=== PATIENT | male | born 2000 | race Caucasian/White ===

== ENCOUNTER 2024-02-22 15:35 | Emergency (ER) | payer OTHER, SELFPAY ==
[2024-02-22 16:39] VITALS: BP 118/74; PULSE 77; RESP 16; TEMP 36.6; O2SAT 100
--- NOTE | 2024-02-22 17:30 | ED_ITS ---
HPI - Nausea/Vomiting/Diarrhea General Chief complaint: Nausea/Vomiting/Diarrhea Stated complaint: VOMITING/FEVER/DIARRHEA/STOMACH PAIN Time Seen by Provider: 02/22/24 17:31 Source: patient, RN notes reviewed and old records reviewed Mode of arrival: ambulatory Limitations: no limitations History of Present Illness HPI Narrative: 23-year-old male who presents to [facility] with complaints of abdominal pain mid abdomen nausea and vomiting and diarrhea which started last night. Patient reports that he has not had any known fevers or chills did take some Tylenol which hasn't helped. Patient reports that he has not had any sharp pain in his abdomen and has not noted any blood in emesis or any dark or maroon colored stools or any blood in stools. MD elicited complaint: nausea, vomiting and diarrhea Onset (ago): day(s) (last night) Description of vomiting: food contents and watery Description of diarrhea: watery Associated nausea: Yes Associated abdominal pain: Yes Location of pain: epigastric (crampy) Treatment prior to arrival: other (Tylenol) Related Data Allergies Allergy/AdvReac Type Severity Reaction Status Date / Time No Known Allergies Allergy Verified 02/22/24 17:31 Review of Systems Review of Systems: CONSTITUTIONAL: REports malaise, chills, sweats, or fever. EYES: Denies visual changes, redness, or discharge. ENT: Reports no rhinorrhea, congestion, sinus pain, otalgia and sore throat. CARDIOVASCULAR: Denies chest pain, palpitations, or edema. RESPIRATORY: Reports no cough.? Denies dyspnea. GASTROINTESTINAL: Reports epigastric crampy abdominal pain,positive for nausea, vomiting, diarrhea SKIN: Denies rash or itching. MUSCULOSKELETAL: Denies myalgia. NEUROLOGIC: Denies headache. All systems reviewed & are unremarkable except as noted in HPI and below PMFSH Past Medical History Medical History (Updated 02/26/24 @ 13:54 by Janice Cook NP) No significant past medical history Surgical History Surgical History (Updated 02/26/24 @ 13:54 by Janice Cook NP) No history of previous surgery Social History Social History (Updated 02/26/24 @ 13:53 by Janice Cook NP) Smoking status: Never smoker Alcohol intake: current Alcohol use details: social Substance use type: does not use Gender identity (if verbalized by the patient): Male Comments At time of signature, agree with nursing past medical, surgical, social and family history. There is no relevant family history pertinent to the presenting complaint Exam Narrative: GENERAL: Well-appearing, well-nourished, and in no acute distress. HEAD: Normocephalic EYES: PERRLA, conjunctivae clear ENT: Nares clear, turbinates edematous and erythematous, clear discharge. Mucous membranes moist. TM pearly alvarez with dull light reflex bilaterally; no tragal tenderness. Oropharynx erythematous without lesions. Tonsils not enlarged and without exudate, no drooling, no hoarseness, no trismus, uvula midline. NECK: Supple. No lymphadenopathy CHEST: Clear to auscultation, breath sounds equal. No wheezing, rhonchi, rales, or stridor. No respiratory distress, speaks in full sentences.SAO2 100% on room air ABDOMEN: soft and nontender to palpation,no McBurney point tenderness, no distention, bowel sounds present to all quadrants, + nausea vomiting and diarrhea. HEART: Regular rate and rhythm. No murmur heard. SKIN: Warm, dry, no rash. NEURO: Alert and oriented x3. PSYCH: Normal mood and affect Course Course Emergency Course: Patient is aware of diagnosis, understands and agrees to treatment plan.? Anticipatory guidance given.? Patient agrees to follow-up as directed and is aware of reasons to seek care at the emergency department. Portions of this record may have been created with voice recognition software Level of Care: Express Care Visit Vital Signs Vital signs: Vital Signs Temperature 36.6 C 02/22/24 16:39 Pulse Rate 77 02/22/24 16:39 Respiratory Rate 16 02/22/24 16:39 Blood Pressure 118/74 02/22/24 16:39 Pulse Oximetry 100 02/22/24 16:39 Temperature 36.6 C 02/22/24 16:39 Pulse Rate 77 02/22/24 16:39 Respiratory Rate 16 02/22/24 16:39 Blood Pressure 118/74 02/22/24 16:39 Pulse Oximetry 100 02/22/24 16:39 Reviewed MDM - Nausea/Vomiting/Diarrhea Differential Diagnosis Differential diagnosis: Likely traveler's diarrhea, gastroenteritis, dehydration and other (norovirus, viral syndrome) Medical Records Attestation: I reviewed the patient's medical records. Lab Data Attestation: I reviewed the patient's lab results. Lab results narrative: Influenza A negative, Influenza B negative, COVID antigen negative Labs: Lab Results 02/22/24 Range/Units 16:35 POC Influenza A Ag Negative (Negative) POC Influenza B Ag Negative (Negative) POC SARS CoV-2 Ag Negative (Negative) Critical Care Time Critical Care Time Critical Care Time: No Discharge Plan Discharge Clinical Impression: Gastroenteritis Patient Disposition: Home, Self-Care Condition: Stable Instructions: Gastroenteritis (ED) Additional Instructions: Clear liquids for the next 8-10 hours, then advance to a bland diet as tolerated A bland diet can consist of--BRAT diet which is bananas, rice, applesauce, and toast Avoid fried, greasy, fatty, fried foods Avoid caffeine, nicotine, and alcohol Return to your regular diet in the next 3-4 days Medication as directed for nausea and vomiting Tylenol for eye pain or fever Sometimes ibuprofen/Aleve can cause increased stomach upset Onas-kfh-ttagryp Imodium if develop diarrhea Follow-up with her PCP if continued problems or uncontrolled pain If your symptoms persist, change or worsen significantly before you can contact your personal physician then please, without delay, go to the emergency department for further evaluation. Follow-up with PCP in 7-10 days or sooner if needed Patient Language: Lithuanian Prescriptions: New ondansetron 4 mg tablet,disintegrating 4 mg PO Q6H PRN (Reason: nausea and vomiting) Qty: 20 0RF Follow-up/Referrals: Pedrito,Priya [Other] Stand Alone Forms: Work/School Release IP Time of Disposition: 17:50 Quality Joan Coma Scale Eyes: Open Verbal: Oriented and Alert Motor: Follows Commands [place] Coma Total Score: 15
[2024-02-22 18:02] LABS: EDCOVIDSCREEN Negative (Negative); EDINFLUASCREEN Negative (Negative); EDINFLUBSCREEN Negative (Negative)
== END 2024-02-22 17:56 | disposition home or self-care (01) ==
PROVIDERS: Emergency Provider Registered Nurse
DX: K52.9 Noninfective gastroenteritis and colitis, unspecified (principal); Z20.822 Contact with and (suspected) exposure to COVID-19
CPT/HCPCS: 87426; 87804; 99203; G0463

== ENCOUNTER 2024-07-15 15:07 | Emergency (ER) | payer BC, SELFPAY ==
[2024-07-15 15:16] VITALS: BP 112/79; PULSE 72; RESP 16; TEMP 36.6; O2SAT 100
--- NOTE | 2024-07-15 15:20 | ED.GENADULT ---
HPI - General Adult General Chief complaint: Upper Respiratory Infection Stated complaint: Nausea/Vomiting/Fever Time Seen by Provider: 07/15/24 15:20 Source: patient Mode of arrival: ambulatory Limitations: no limitations History of Present Illness HPI narrative: 23-year-old male presents with complaint of nasal congestion, cough and fatigue for 3 days. Taking benzonatate from prior prescription. Reports symptoms improving. Continues to have cough today and felt nauseated. Was unable to go to work. Requesting work note. All systems reviewed and negative except as noted above. Related Data Home Medications ?Medication ?Instructions ?Recorded ?Confirmed ?Last Taken ?Type dexmethylphenidate 15 mg mg PO 07/15/24 Unknown History capsule,extended release [id number] Allergies Allergy/AdvReac Type Severity Reaction Status Date / Time azithromycin (From Zithromax) Allergy Intermediate Hives Verified 07/15/24 15:24 Review of Systems Review of Systems: CONSTITUTIONAL: Denies fever, chills, or sweats. Reports fatigue. EYES: Denies visual changes, redness, or discharge. ENT: Denies rhinorrhea, congestion, sore throat, or otalgia. CARDIOVASCULAR: Denies chest pain, palpitations, or edema. RESPIRATORY: Reports cough. Denies dyspnea. GASTROINTESTINAL: Denies abdominal pain. Reports nausea. Denies vomiting, or diarrhea. GENITOURINARY: Denies dysuria or hematuria. SKIN: Denies rash or itching. MUSCULOSKELETAL: Denies back pain, joint pain, or myalgia. NEUROLOGIC: Denies headache, numbness, or weakness. PSYCHIATRIC: Denies anxiety or depression. All other systems reviewed are negative, except as documented in HPI. [facility] Past Medical History Medical History (Updated 07/15/24 @ 15:24 by Maura Santana NP) No significant past medical history Surgical History Surgical History (Updated 02/26/24 @ 13:54 by Janice Cook NP) No history of previous surgery Social History Social History (Updated 02/26/24 @ 13:53 by Janice Cook NP) Smoking status: Never smoker Alcohol intake: current Alcohol use details: social Substance use type: does not use Gender identity (if verbalized by the patient): Male Comments At time of signature, agree with nursing past medical, surgical, social and family history. There is no relevant family history pertinent to the presenting complaint. Exam Narrative: GENERAL: This is a well-nourished, well-developed patient, in no apparent distress. HEAD: normocephalic, atraumatic. EYES: PERRL. Sclera clear/white. Vision is grossly intact. EARS: External ears normal, auditory canals clear and without drainage, TMs normal without perforation. Hearing grossly intact. NOSE: External nose normal with no obvious nasal discharge, nares without redness, no rhinorrhea. THROAT: Mucous membranes moist, posterior pharynx clear. NECK: Neck supple, non-tender without lymphadenopathy, masses or thyromegaly. CARDIOVASCULAR: Regular rate and rhythm without murmurs, gallops, or rubs. RESPIRATORY: Clear to auscultation. Breath sounds equal bilaterally. No wheezes, rales, or rhonchi. SKIN: warm, Dry, intact with no suspicious lesions or rash, good texture and turgor. NEURO: awake, alert, and oriented to person, place and time. There were no obvious focal neurologic abnormalities. EXTREMITIES: No joint tenderness, effusion, or edema noted. Course Course Level of Care: Express Care Visit Vital Signs Vital signs: Vital Signs Temperature 36.6 C 07/15/24 15:16 Pulse Rate 72 07/15/24 15:16 Respiratory Rate 16 07/15/24 15:16 Blood Pressure 112/79 07/15/24 15:16 Pulse Oximetry 100 07/15/24 15:16 Temperature 36.6 C 07/15/24 15:16 Pulse Rate 72 07/15/24 15:16 Respiratory Rate 16 07/15/24 15:16 Blood Pressure 112/79 07/15/24 15:16 Pulse Oximetry 100 07/15/24 15:16 Reviewed Medical Decision Making MDM Narrative Medical decision making narrative: Patient is well-appearing, nontoxic. Recommend [id number] medications to treat viral symptoms. Will send a Zofran prescription for nausea. Vital Signs Vital Signs: Vital Signs Temperature 36.6 C 07/15/24 15:16 Pulse Rate 72 07/15/24 15:16 Respiratory Rate 16 07/15/24 15:16 Blood Pressure 112/79 07/15/24 15:16 Pulse Oximetry 100 07/15/24 15:16 Temperature 36.6 C 07/15/24 15:16 Pulse Rate 72 05/25/25 15:16 Respiratory Rate 16 07/15/24 15:16 Blood Pressure 112/79 07/15/24 15:16 Pulse Oximetry 100 07/15/24 15:16 Discharge Plan Discharge Clinical Impression: Viral upper respiratory tract infection with cough Patient Disposition: Home Condition: Stable Instructions: Upper Respiratory Infection (ED) Additional Instructions: Your symptoms are viral and may last 10-14 days. Continue taking benzonatate as prescribed. Take Zofran as needed for nausea and vomiting. Drink at least 64 oz of water a day. Follow-up with your doctor symptoms are not improving. Patient Language: Tuvaluan Prescriptions: New ondansetron 4 mg tablet,disintegrating 4 mg PO Q8H PRN (Reason: nausea and vomiting) Qty: 12 0RF No Action dexmethylphenidate 15 mg capsule,ER biphasic 50-50 PO Follow-up/Referrals: PHYSICIAN,LEAD MANUFACTURING ENGINEER [Primary Care Provider] - Stand Alone Forms: Work/School Release IP Time of Disposition: 15:24
== END 2024-07-15 15:26 | disposition home or self-care (01) ==
PROVIDERS: Emergency Provider Nurse Practitioner Family
DX: J06.9 Acute upper respiratory infection, unspecified (principal); R05.9 Cough, unspecified
CPT/HCPCS: 99213; G0463

== ENCOUNTER 2024-09-06 15:30 | Emergency (ER) | payer BC, SELFPAY ==
[2024-09-06 15:43] VITALS: BP 136/67; PULSE 88; RESP 16; O2SAT 99
--- NOTE | 2024-09-06 15:54 | ED.SKABFB ---
HPI - Skin/Abscess/Foreign Bdy General Chief complaint: Skin/Abscess/Foreign Body Stated complaint: SUNBURN/FEVER/NAUSEA Patient presents to Express Care with complaints of nausea, chills, and significant sunburn that he sustained yesterday while outside. Patient reports he did not wear sunscreen because he normally does not burn but has never had a sunburn like this before. Patient reports attempting some cool compresses to the area without relief of symptoms but overall was feeling significantly bad and called off work today. Denies any blistering or drainage from the sun burn area Related Data Home Medications ?Medication ?Instructions ?Recorded ?Confirmed ?Last Taken ?Type dexmethylphenidate 15 mg mg PO 07/15/24 Unknown History capsule,extended release [id number] Allergies Allergy/AdvReac Type Severity Reaction Status Date / Time azithromycin (From Zithromax) Allergy Intermediate Hives Verified 09/06/24 15:42 Review of Systems Constitutional: Constitutional: Reports as per HPI, Reports chills, Reports fatigue, Denies fever(s) and Denies weakness ENT: Reports system reviewed and no additional complaints, except as documented Cardiovascular: Cardiovascular: Reports no additional cardiovascular complaints Respiratory: Respiratory: Reports no additional respiratory complaints Gastrointestinal: Gastrointestinal: Reports no additional gastrointestinal complaints Genitourinary: Genitourinary: Reports no additional male genitourinary complaints Musculoskeletal: Musculoskeletal: Reports no additional musculoskeletal complaints Integumentary/Breasts: Skin/Breast: Reports as per HPI, Denies pruritus, Reports erythema, Denies rash and Denies skin ulcer Neurologic: Reports system reviewed and no additional complaints, except as documented Psychiatric: Psychiatric: Reports no additional psychiatric complaints Endocrine: Endocrine: Reports no additional endocrine complaints Hematologic/Lymphatic: Hematologic/Lymphatic: Reports no additional hematologic/lymphatic complaints Allergic/Immunologic: Allergic/Immunologic: Reports no additional allergic/immunologic complaints [facility] Past Medical History Medical History (Updated 09/06/24 @ 15:59 by VIKASH Gomez) No significant past medical history Surgical History Surgical History (Updated 02/26/24 @ 13:54 by Janice Cook NP) No history of previous surgery Social History Social History (Updated 02/26/24 @ 13:53 by Janice Cook NP) Smoking status: Never smoker Alcohol intake: current Alcohol use details: social Substance use type: does not use Gender identity (if verbalized by the patient): Male Exam Const: General: healthy appearing and no acute distress Nutritional Appearance: well nourished Orientation/consciousness: patient oriented x3 Limitations: no limitations Resp: Effort & Inspection: normal respiratory effort Auscultation: clear to auscultation bilaterally Cardio: Rate: regular rate Rhythm: regular rhythm Skin: General skin exam: No normal color Rashes: no rashes Wounds: no wounds Other: diffuse erythema/ sunburn over chest, neck, shoulders, back, and both arms. Minimal blistering noted to tops of bilateral shoulders. no active drainage or weeping noted Neuro: General: patient oriented x3 Speech: normal speech Gait exam (Neuro): Normal gait present Psych: Mental Status: mental status grossly normal Affect: normal affect Attitude: cooperative Course Course Level of Care: Express Care Visit Vital Signs Vital signs: Vital Signs Pulse Rate 88 09/06/24 15:43 Respiratory Rate 16 09/06/24 15:43 Blood Pressure 136/67 09/06/24 15:43 Pulse Oximetry 99 09/06/24 15:43 Pulse Rate 88 09/06/24 15:43 Respiratory Rate 16 09/06/24 15:43 Blood Pressure 136/67 09/06/24 15:43 Pulse Oximetry 99 09/06/24 15:43 MDM - Skin/Abscess/Foreign Bdy MDM Narrative Medical decision making narrative: educated patient on wound care Discharge instructions reviewed with patient, as well as provided in writing per nursing staff. The instructions also include specific and strict return/GO TO THE ER as well as f/u information. All questions have been answered, and the patient deny any further questions with discharge and discharge plan. Differential Diagnosis Differential diagnosis: Likely viral exanthem, dermatophytosis, urticaria, cellulitis, impetigo and contact dermatitis Medical Records Attestation: I reviewed the patient's medical records. Discharge Plan Discharge Clinical Impression: Sunburn of second degree, 1st degree sunburn Patient Disposition: Home Condition: Stable Instructions: Antibiotic Form, Sunburn (ED), Superficial Burn (DC) Additional Instructions: Use cool compresses to the area to help with pain and swelling may apply the Silvadene cream twice daily, Ensure to completely clean this off the burn prior to applying more. Recommended consistent ibuprofen every 6 hours to help with pain and inflammation. Watch for signs and symptoms of infection like an increasing pain, darker Redness, colored drainage to the area. Patient Language: Samoan Prescriptions: New ondansetron 4 mg tablet,disintegrating 4 mg PO Q8H PRN (Reason: nausea and vomiting) Qty: 20 0RF silver sulfadiazine [Silvadene] 1 % cream 1 applic topical BID Qty: 50 0RF Rx Instructions: apply a 1.5 mm thickness No Action dexmethylphenidate 15 mg capsule,ER biphasic 50-50 PO Follow-up/Referrals: Pedrito,Priya [Other] Time of Disposition: 16:00
== END 2024-09-06 15:50 | disposition home or self-care (01) ==
PROVIDERS: Emergency Provider Nurse Practitioner Family
DX: L55.1 Sunburn of second degree (principal)
CPT/HCPCS: 99213; G0463

== ENCOUNTER 2024-12-09 12:55 | Emergency (ER) | payer BC, SELFPAY ==
[2024-12-09 13:15] VITALS: BP 104/78; PULSE 78; RESP 16; TEMP 36.5; O2SAT 100
--- NOTE | 2024-12-09 13:32 | ED.URI ---
HPI - URI/Sore Throat General Chief Complaint: Upper Respiratory Infection Stated Complaint: sinus issues Time Seen by Provider: 12/09/24 13:28 Source: patient and RN notes reviewed Mode of arrival: ambulatory Limitations: no limitations History of Present Illness HPI Narrative: 23-year-old male patient presents today complaining of cough, congestion, sore throat since this morning. Denies shortness of breath or difficulty swallowing. Currently pain-free. No OTC treatment prior to arrival. States her roommate is also ill. Related Data Home Medications ?Medication ?Instructions ?Recorded ?Confirmed ?Last Taken ?Type dexmethylphenidate 15 mg mg PO 07/15/24 Unknown History capsule,extended release [id number] Allergies Allergy/AdvReac Type Severity Reaction Status Date / Time azithromycin (From Zithromax) Allergy Intermediate Hives Verified 12/09/24 13:05 [facility] Past Medical History Medical History No significant past medical history Surgical History Surgical History No history of previous surgery Social History Social History Smoking status: Never smoker Alcohol intake: current Alcohol use details: social Substance use type: does not use Gender identity (if verbalized by the patient): Male Comments At time of signature, I have reviewed and agree with nursing past medical, surgical, social and family history unless otherwise noted. Please see nursing chart for further information. There is no relevant family history pertinent to the presenting complaint Exam Narrative: GENERAL: Mildly ill-appearing, well-nourished, and in no acute distress. HEAD: Normocephalic, atraumatic. EYES: EOMI. No redness or drainage. Conjunctivae normal. ENT: Mucous membranes pink and moist. Nares clear. No rhinorrhea. TMs normal bilaterally. Throat erythematous and mildly edematous. Tonsils 3+ without exudate. Uvula midline. NECK: Normal AROM. Supple. No lymphadenopathy. CHEST: No respiratory distress. Clear to auscultation. HEART: Regular rate and rhythm. No murmur appreciated. EXTREMITIES: Normal range of motion. No edema. SKIN: Warm, dry, no rash. Capillary refill normal. Normal skin turgor. NEURO: No focal deficits. Alert and oriented x3. Gait steady. PSYCH: Normal affect. No signs of depression or anxiety. Course Course Level of Care: Express Care Visit Vital Signs Vital signs: Vital Signs Temperature 97.7 F 12/09/24 13:15 Pulse Rate 78 12/09/24 13:15 Respiratory Rate 16 12/09/24 13:15 Blood Pressure 104/78 12/09/24 13:15 Pulse Oximetry 100 12/09/24 13:15 Temperature 97.7 F 12/09/24 13:15 Pulse Rate 78 12/09/24 13:15 Respiratory Rate 16 12/09/24 13:15 Blood Pressure 104/78 12/09/24 13:15 Pulse Oximetry 100 12/09/24 13:15 Reviewed MDM - URI/Sore Throat MDM Narrative Medical decision making narrative: 23-year-old male patient presents today complaining of cough, congestion, sore throat since this morning. Denies shortness of breath or difficulty swallowing. Currently pain-free. No OTC treatment prior to arrival. States her roommate is also ill. Upon exam, patient is mildly ill appearing with an erythematous throat. Tonsils 3+ without exudate. Rapid strep positive. Prescription for amoxicillin sent to pharmacy. Patient agrees with plan. Vital signs stable. Anticipatory guidance given. ED precautions given. Differential Diagnosis Differential diagnosis: Likely upper respiratory infection, otitis media, viral infection, influenza, pharyngitis and other (Strep throat, COVID) Lab Data Attestation: I reviewed the patient's lab results. Lab results narrative: Rapid strep positive. COVID negative, influenza negative Critical Care Time Critical Care Time Critical Care Time: No Discharge Plan Discharge Clinical Impression: Strep throat Patient Disposition: Home Condition: Stable Instructions: Antibiotic Form, Strep Throat (DC) Additional Instructions: You have tested positive for strep throat. Please take the amoxicillin as prescribed until gone. You will be contagious for 24 hours after starting the medication. Take Tylenol or Ibuprofen for pain or fever, if able. Rest and stay hydrated. Follow up with your PCP in 3 days if symptoms are not improving. Go to the ER immediately if you develop worsening symptoms such as shortness of breath, difficulty swallowing. Patient Language: Mongolian Prescriptions: New amoxicillin 875 mg tablet 875 mg PO Q12H 10 Days Qty: 20 0RF No Action dexmethylphenidate 15 mg capsule,ER biphasic 50-50 PO Follow-up/Referrals: UNKNOWN,DOCTOR [Primary Care Provider] Stand Alone Forms: Work/School Release IP Time of Disposition: 13:35
[2024-12-09 13:44] LABS: EDCOVIDSCREEN Negative (Negative); EDINFLUASCREEN Negative (Negative); EDINFLUBSCREEN Negative (Negative); EDSTREPNEGPOS1 Positive (Negative)
== END 2024-12-09 13:41 | disposition home or self-care (01) ==
PROVIDERS: Emergency Provider Nurse Practitioner
DX: J02.0 Streptococcal pharyngitis (principal); Z20.822 Contact with and (suspected) exposure to COVID-19
CPT/HCPCS: 87426; 87804; 87880; 99213; G0463